=== PATIENT | male | born 1975 | race Two or more races ===

== ENCOUNTER 2018-11-21 06:46 | Emergency (ER) | payer OTHER ==
[~2018-11-21] VITALS: Ht 180.3 cm; Wt 95.7 kg
[2018-11-21] MEDS ORDERED: ONDANSETRON HCL/PF 4 MG/2 ML VIAL IVP ONE (07:00)
[2018-11-21] MEDS ORDERED: IV NS 0.9% 1,000 ML BAG IV ONE (07:00)
--- NOTE | 2018-11-21 07:00 | NUR ---
ADDENDUM: Intravenous End Time Documentation: Normal saline 1 liter (IV-WO) : start time: 0700 ; end time: 0800 : IV site: LAC # 20 Port # 1
[2018-11-21 07:33] LABS: BASOPHILS % (AUTO) 0.3 % (0.0-2.0); EOSINOPHILS % (AUTO) 0.6 % (0.0-6.0); HEMATOCRIT 49 % (39-51); HEMOGLOBIN 15.9 g/dL (13.5-17.5); LYMPHOCYTES # (AUTO) 1.2 /CMM (0.8-4.8); LYMPHOCYTES % (AUTO) 14.4 % (20.0-44.0); MEAN CORPUSCULAR HGB CONC 33 g/dl (31.0-36.0); MEAN CORPUSCULAR VOLUME 85 fL (80-96); MONOCYTES # (AUTO) 0.9 /CMM (0.1-1.30); NEUTROPHILS % (AUTO) 73.7 % (43.0-81.0); PLATELET COUNT (AUTO) 222 /CMM (150-450); RED BLOOD CELL COUNT(AUTO) 5.79 MIL/uL (4.5-6.0); WHITE BLOOD COUNT (AUTO) 8.1 K/uL (4.3-11.0)
--- NOTE | 2018-11-21 07:40 | NUR ---
PT REC'D TO ER C/O PAIN ABD XRAY DONE IV FLUIDS AND ZOFRAN 4 MG IV[P GIVEN PER MD ORDER
[2018-11-21 07:47] LABS: CALCIUM, SERUM 10.1 mg/dL (8.5-10.1); POTASSIUM 4.6 mmol/L (3.5-5.1)
[2018-11-21 07:56] LABS: BILIRUBIN,DIRECT 0.1 mg/dL (0.0-0.2); BILIRUBIN,TOTAL 0.4 mg/dL (0.2-1.0)
--- NOTE | 2018-11-21 08:00 | NUR ---
UP AMB TO BR HAS DIARRHEA . IN CUSTODY
[2018-11-21] MEDS ORDERED: ONDANSETRON HCL/PF 4 MG/2 ML VIAL ONE (08:47)
--- NOTE | 2018-11-21 08:58 | NUR ---
PT STILL HAS PAIN LITLE BETTER OK TO BOOK AND D/C VSS
[2018-11-21 09:04] VITALS: BP 144/80
== END 2018-11-21 09:05 ==
LOC: ER 06:53
DX: R10.84 Generalized abdominal pain (principal); R11.2 Nausea with vomiting, unspecified; F15.10 Other stimulant abuse, uncomplicated
CPT/HCPCS: 36415; 74176; 80048; 80076; 80307; 83690; 85025; 96361; 96374; 99284; J2405; J7030; G0480